=== PATIENT | female | born 1975 | race Caucasian/White ===

== ENCOUNTER 2016-10-20 17:05 | Emergency (ER) | payer OTHER ==
[~2016-10-20] VITALS: Wt 72.0 kg
--- NOTE | 2016-10-20 17:58 | ERA ---
ER Documentation Chief Complaint Date/Time DATE: 10/20/16 TIME: 17:51 Chief Complaint PELVIC PAIN X 6 MONTHS HPI Patient is a 41-year-old female who presents complaining of lower back pain radiating to the pelvis and down to the anterior thighs for the past 6 months. Patient has taken multiple medications including NSAIDs, muscle relaxers for her symptoms prescribed by multiple providers. Has a history of a uterine fibroid and a herniated disc. Denies dysuria, dyspareunia, or vaginal discharge. Pt denies h/o RAYMOND including overuse, strain, or trauma; Denies saddle parasthesia, incontinence, RPNF, or pain exacerbated by valsalva. Pt denies fever, chills, night sweats, weight loss, or increase symptoms at night. Denies h/o cardiovascular dz, sciatica, spinal stenosis, fibromyalgia cancer, HIV, IVDU, arthritis or recent surgery. ROS All systems reviewed and are negative except as per history of present illness. Medications Home Meds Active Scripts Ibuprofen* (Motrin*) 600 Mg Tab, 600 MG PO Q8, #30 TAB Prov:DANNI HERRING PA-C 10/20/16 Allergies Allergies: Coded Allergies: acetaminophen (Verified Adverse Reaction, Mild, N/V, 10/21/13) hydrocodone bit (Verified Adverse Reaction, Mild, N/V, 10/21/13) PMhx/Soc History of Surgery: No Anesthesia Reaction: No Hx Neurological Disorder: No Hx Respiratory Disorders: No Hx Cardiac Disorders: No Hx Psychiatric Problems: No Hx Miscellaneous Medical Probl: No Hx Alcohol Use: No Hx Substance Use: No Hx Tobacco Use: No Physical Exam Vitals Vital Signs Date Time Temp Pulse Resp B/P Pulse Ox O2 Delivery O2 Flow Rate FiO2 10/20/16 20:51 98.0 62 16 116/65 100 Room Air 10/20/16 17:07 98.0 93 18 138/66 99 Physical Exam Const: Obese 41-year-old female Head: Atraumatic Eyes: Normal Conjunctiva ENT: Normal External Ears, Nose and Mouth. Neck: Full range of motion..~ No meningismus. Resp: Clear to auscultation bilaterally Cardio: Regular rate and rhythm, no murmurs Abd: Soft, non tender, non distended. Normal bowel sounds Skin: No petechiae or rashes Back: No midline or flank tenderness Ext: No cyanosis, or edema Neur: Awake and alert Psych: Normal Mood and Affect Results 24 hrs Laboratory Tests Test 10/20/16 18:00 Urine Bilirubin NEGATIVE Urine Clarity CLEAR Urine Color YELLOW Urine Glucose NEGATIVE% Urine Hemoglobin NEGATIVE Urine Ketones TRACE Urine Leukocyte Esterase NEGATIVE Urine Nitrite NEGATIVE Urine Specific [place] 1.020 Urine Total Protein NEGATIVE Urine Urobilinogen 1.0 E.U./dL Urine pH 6.0 Current Medications Medications (Trade) Dose Ordered Sig/Alonso Route PRN Reason Start Time Stop Time Status Last Admin Dose Admin Ibuprofen (Motrin) 600 mg ONCE ONCE PO 10/20/16 18:30 10/20/16 18:31 DC 10/20/16 18:09 Procedures/MDM Patient complains of chronic back pain persisting more than 6 months. Patient has a history of uterine fibroid and herniated disc. We will give ibuprofen for current pain. Is taking multiple medications including NSAIDs and muscle relaxants without relief. Patient appears in moderate distress while trying to change positions. Nothing improves her pain. Ultrasound results were as follows 1. Benign-appearing left ovarian hemorrhagic cyst measuring up to 2.3 cm. No further evaluation required. Imaging small amount of free fluid in the left adnexa. 3. Otherwise normal pelvic ultrasound. The x-ray showed mild disc narrowing narrowing at the L4-L5 and L5-S1 disc spaces. At this time there is no need to do further evaluation. Patient has been recommended to follow-up with her primary care provider for chronic pain management possible referral to a specialist for more thorough evaluation and more advanced imaging modalities. I spoke to my attending and he agrees with the assessment and plan. Departure Condition: Stable Additional Instructions: Return to clinic if symptoms worsen, bowel and bladder function is lost, or fever develops. DANNI HERRING PA-C Oct 20, 2016 17:58 DANNI HERRING PA-C Oct 20, 2016 17:58
[2016-10-20 18:26] LABS: ADD UMIC NO; URINE BILIRUBIN (Dip) NEGATIVE (NEGATIVE); URINE BLOOD (Dip) NEGATIVE (NEGATIVE); URINE COLOR YELLOW (YELLOW); URINE GLUCOSE (Dip) NEGATIVE (NEGATIVE); URINE KETONES (Dip) TRACE (NEGATIVE); URINE LEUKOCYTE ESTERASE (Dip) NEGATIVE (NEGATIVE); URINE NITRITE (Dip) NEGATIVE (NEGATIVE); URINE TOTAL PROTEIN (Dip) NEGATIVE (NEGATIVE); URINE UROBILINOGEN (Dip) 1.0 E.U./dL (0.1-1.0)
[2016-10-20] MEDS ORDERED: IBUPROFEN 600 MG TAB PO ONE (18:30)
--- NOTE | 2016-10-20 18:36 | RADRPT ---
PROCEDURE: XR Lumbar Spine. CLINICAL INDICATION: Back pain. TECHNIQUE: Three views. AP, lateral and cone-down lateral view of the lumbar spine were obtained. COMPARISON: No prior studies are available for comparison. FINDINGS: There is normal stature and alignment of the vertebrae. There is no fracture. There is no lytic or blastic lesion. There is mild disk space narrowing at L4-5 and L5-S1. The paravertebral soft tissues are unremarkable. IMPRESSION: 1. Mild disk space narrowing at L4-5 and L5-S1. 2. Otherwise unremarkable study. RPTAT: QQ .Shahzad Vo MD, MD Date Time Electronically viewed and signed by .Shahzad Vo MD, MD on 10/20/2016 18:35 .R/
--- NOTE | 2016-10-20 20:18 | RADRPT ---
PROCEDURE: US Pelvis. CLINICAL INDICATION: Pelvic pain. TECHNIQUE: The pelvis was evaluated with transabdominal and transvaginal sonography in the axial a nd sagittal planes. COMPARISON: No prior study is available for comparison. FINDINGS: Uterus: 9.6 x 4.7 x 5.0 cm. Endometrium: 11.0 mm. Right ovary: 2.6 x 2.0 x 2.8 cm. Left ovary: 4.3 x 2.6 x 3.3 cm. Uterine masses: None. Ovarian masses: There is a benign-appearing left ovarian hemorrhagic cyst measuring 2.3 x 1.5 x 2.0 cm. The ovaries are otherwise normal. Color Doppler and pulsed Doppler sonography demonstrate du l flow to the ovaries. Other pelvic masses: None. Free fluid: A small amount of free fluid is present in the left adnexa. IMPRESSION: 1. Benign-appearing left ovarian hemorrhagic cyst measuring up to 2.3 cm. No further evaluation re quired. Imaging small amount of free fluid in the left adnexa. 3. Otherwise normal pelvic ultrasound. RPTAT: QQ .Shahzad Vo MD, MD Date Time Electronically viewed and signed by .Shahzad Vo MD, on 10/20/2016 20:17 .R/
[2016-10-20] MEDS ORDERED: IBUP-1542 PO (20:33)
[2016-10-20 20:51] VITALS: BP 116/65; PULSE 62; RESP 16; TEMP 98
== END 2016-10-20 20:52 | disposition home or self-care (01) ==
LOC: FTE 17:05
DX: M54.5 Low back pain (principal); R10.2 Pelvic and perineal pain
CPT/HCPCS: 72100; 76830; 76856; 81003; Z7502; Z7610

== ENCOUNTER 2017-02-28 14:24 | Emergency (ER) | payer BC, OTHER ==
[~2017-02-28] VITALS: Wt 78.0 kg
[~2017-02-28 14:24] MED LIST: IBUP-1542 PO
[2017-02-28] MEDS ORDERED: CEPH-443 PO (14:46)
[2017-02-28] MEDS ORDERED: SULF1TAB31 PO (14:46)
--- NOTE | 2017-02-28 14:55 | ERA ---
ER Documentation Chief Complaint Date/Time DATE: 02/28/17 TIME: 14:48 Chief Complaint R ARM PAIN X 4 DAYS HPI This is an otherwise healthy 41-year-old female with a chief complaints of right arm soreness and rash. Patient states that the rash started 2 days ago and started becoming tender. 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 Patient also states that she has low vitamin D levels according to her PCP that she takes supplements for 1-2 months. Denies any other medical conditions including diabetes and asthma. Denies any recent weight change, shortness of breath, chest pain, fevers, chills, rashes in other areas of the body, recent travel, recreational drug use, alcohol abuse, or sick contacts. Patient has no other complaints and describes no other associated manifestations. The nursing notes have been reviewed and are mostly consistent with a history given. ROS All systems reviewed and are negative except as per history of present illness. Medications Home Meds Active Scripts Cephalexin* (Keflex*) 500 Mg Capsule, 500 MG PO QID for 5 Days, CAP Prov:DANNI HERRING PA-C 02/28/17 Sulfamethoxazole/Trimethoprim* (Bactrim Ds* Tablet) 1 Each Tablet, 1 TAB PO BID , #14 TAB Prov:DANNI HERRING PA-C 02/28/17 Ibuprofen* (Motrin*) 600 Mg Tab, 600 MG PO Q8, #30 TAB Prov:DANNI HERRING PA-C 10/20/16 Allergies Allergies: Coded Allergies: acetaminophen (Verified Adverse Reaction, Mild, N/V, 10/21/13) hydrocodone bit (Verified Adverse Reaction, Mild, N/V, 10/21/13) PMhx/Soc History of Surgery: No Anesthesia Reaction: No Hx Neurological Disorder: No Hx Respiratory Disorders: No Hx Cardiac Disorders: No Hx Psychiatric Problems: No Hx Miscellaneous Medical Probl: No Hx Alcohol Use: No Hx Substance Use: No Hx Tobacco Use: No Smoking Status: Never smoker Physical Exam Vitals Vital Signs Date Time Temp Pulse Resp B/P Pulse Ox O2 Delivery O2 Flow Rate FiO2 02/28/17 14:26 98.0 70 18 129/72 99 Physical Exam Const: Healthy-appearing. Well-nourished. Well-developed. No acute distress. Skin: Descending erythematous mild to moderately tender area on the inner upper arm between the biceps and triceps. Positive palpable cord. Skin is warm with good turgor. Ext: No edema or palpable cord. Normal movement of all extremities grossly observed. Neur: Awake, alert and oriented x3. Neurovascularly intact bilaterally. Oral: No oral edema visualized. Mucous membranes moist and pink. Head: Normocephalic, Atraumatic. Eyes: Non-injected; No discharge. EOMI and JOHN bilaterally. Ears: Normal External Ears, EACs clear, TM normal bilaterally without erythema. Nose: Normal external nose; no discharge, or sinus tenderness. Neck: No cervical lymphadenopathy, masses or goiter palpated. ~ No meningismus. Pulm: Good air movement in upper and lower respiratory tracts. No dyspnea, stridor, tripoding or drooling. Clear to auscultation bilaterally. Cardio: Regular rate and rhythm; No murmurs, gallops or rubs auscultated. No JVD grossly observed. No cyanosis. Capillary refill less than 2 seconds. Radial pulses 2+ bilaterally. Abd: Soft, non tender, non distended. No guarding, masses. Normal bowel sounds. MS: Normal motor strength, normal tone with gross examination. Back: No midline, flank or CVA tenderness. Psych: Normal Mood and Affect. Procedures/MDM Otherwise healthy 41-year-old female presenting with a chief complaint of right arm rash. Vitals are stable. Patient's signs and symptoms are most consistent with superficial thrombophlebitis versus cellulitis. I am unable to rule out infectious etiology at this time thus antibiotics with Bactrim and Keflex p.o. outpatient will be given. Patient is also been advised to take ibuprofen p.o. for discomfort. I have little suspicion for lymphangitis, systemic involvement , Sukhi schrodinger syndrome or other venous thromboembolism, bacteremia or cardiopulmonary involvement. I have enlisted the help of my supervising physician Dr. Murrell who has suggested and agreed with the assessment and plan. I have spoke with the patient regarding their condition and future management. They have verbally responded that they understand their status and treatment plan. The patients vitals are stable, and their current condition is appropriate for discharge. The patient will be given discharge instructions with return precautions. Discharge medications: Keflex p.o. 5 days, Bactrim DS p.o. 7 days, ibuprofen as needed Departure Diagnosis: Primary Impression: Thrombophlebitis arm Additional Impression: Cellulitis Qualified Code: L03.113 - Cellulitis of right upper extremity Condition: Stable Patient Instructions: Thrombophlebitis, Superficial Additional Instructions: Follow up with your PCP within the next 1-3 days for a more thorough evaluation and a possible referral to a specialist. Return the the emergency department immediately if symptoms worsen or change. If you have any questions regarding medications, ask your pharmacist or us before you leave. If any adverse reactions occur while taking your medications, discontinue the treatment and return to the emergency department immediately. Take your medications as directed, and complete the entire course of treatment. DANNI HERRING PA-C Feb 28, 2017 14:55
== END 2017-02-28 15:07 | disposition home or self-care (01) ==
LOC: FTE 14:24
DX: I80.8 Phlebitis and thrombophlebitis of other sites (principal); L03.113 Cellulitis of right upper limb
CPT/HCPCS: 99284

== ENCOUNTER 2019-04-10 12:57 | Emergency (ER) | payer BC ==
[~2019-04-10] VITALS: Ht 160 cm; Wt 72.9 kg
[~2019-04-10 12:57] MED LIST changes: +ACET325T33 PO; +BACL10TA PO; +CEPH-443 PO; +SULF1TAB31 PO
[2019-04-10 13:06] VITALS: BP 128/75; PULSE 76; RESP 18; Ht 160 cm; Wt 72.9 kg
== END 2019-04-10 15:57 | disposition home or self-care (01) ==
LOC: FTE 12:57
DX: M62.838 Other muscle spasm (principal)
CPT/HCPCS: 72040